=== PATIENT | female | born 1970 ===

== ENCOUNTER 2022-03-09 22:09 | Day surgery (SDC) | payer BC ==
[2022-03-09] MEDS ORDERED: fentaNYL Citrate/PF 100 MCG/2 ML SYRINGE ONE (22:21)
[2022-03-09] MEDS ORDERED: Midazolam HCl 2 mg/2 ml Vial ONE (22:21)
[2022-03-09] MEDS ORDERED: Promethazine HCl 25 MG/ML VIAL IVPB PRN (22:43)
[2022-03-09] MEDS ORDERED: Promethazine HCl 25 MG/ML VIAL IM PRN (22:43)
[2022-03-09] MEDS ORDERED: Ondansetron HCl/PF 4 MG/2 ML Vial IVP PRN (22:43)
[2022-03-09] MEDS ORDERED: Lidocaine 1% MPF 2 ML VIAL ONE (22:48)
[2022-03-09] MEDS ORDERED: Dexamethasone 20 MG/5 ML VIAL ONE (22:48)
[2022-03-09] MEDS ORDERED: Succinylcholine 200 MG/10 ml SYRINGE FS ONE (22:48)
[2022-03-09] MEDS ORDERED: PROPOFOL 200 MG/20 ML VIAL ONE (22:48)
[2022-03-09] MEDS ORDERED: Ondansetron PF 4 MG/2 ML Vial ONE (22:48)
[2022-03-09] MEDS ORDERED: Phenylephrine 10 MG/ML VIAL ONE (22:48)
== END 2022-03-10 00:11 | disposition home or self-care (01) ==
LOC: SDC 22:09
PROVIDERS: ATTEND Internal Medicine Gastroenterology
PROC: 0DB18ZX Excision of Upper Esophagus, Via Natural or Artificial Opening Endoscopic, Diagnostic (ICD-10-PCS; principal; 2022-03-09)
PROC: 0DC58ZZ Extirpation of Matter from Esophagus, Via Natural or Artificial Opening Endoscopic (ICD-10-PCS; principal; 2022-03-09)
PROC: 0D758ZZ Dilation of Esophagus, Via Natural or Artificial Opening Endoscopic (ICD-10-PCS; principal; 2022-03-09)
PROC: 0DB38ZX Excision of Lower Esophagus, Via Natural or Artificial Opening Endoscopic, Diagnostic (ICD-10-PCS; principal; 2022-03-09)
DX: T18.128A Food in esophagus causing other injury, initial encounter (principal); K22.2 Esophageal obstruction; K20.90 Esophagitis, unspecified without bleeding; J45.909 Unspecified asthma, uncomplicated; X58.XXXA Exposure to other specified factors, initial encounter
CPT/HCPCS: 88305; J1100; J2250; J2370; J2405; J2704